=== PATIENT | female | born 1965 | race Caucasian/White ===

== ENCOUNTER 2017-04-05 22:10 | Inpatient (IN) | payer OTHER ==
[~2017-04-05] VITALS: Ht 182.9 cm; Wt 76.3 kg
[~2017-04-05 22:10] MED LIST: ABILIFY5 MG PO; ATARAX,VISTARIL50 MG PO; ATENOLOL50 MG PO; ATIVAN0.5 MG PO; BENADRYL25 MG PO; BRINTELLIX20 MG PO; CELEBREX200 MG PO; CELECOXIB200 MG PO; CELEXA20 MG PO; COUMADIN,JANTOVE5 MG PO; COUMADIN1 MG PO; COUMADIN3 MG PO; COUMADIN4 MG PO; COUMADIN5 MG PO; Coumadin Protocol PO; DESYREL 150 MG150 MG PO; ELAVIL50 MG PO; Elavil PO; Feosol PO; Hydrodiuril,Oretic,E PO; JANTOVEN4 MG PO; KEFLEX500 MG PO; LEVOTHYROXINE50 MCG PO; LIPITOR10 MG PO; LISINOPRIL40 MG PO; LOVENOX40 MG/0.4 SC; LOVENOX80 MG/0.8 SC; LUNESTA3 MG PO; METHOCARBAMOL500 MG PO; MOTRIN600 MG PO; MS CONTIN,ORAMO15 M1 PO; NAPROSYN500 MG PO; NORCO 7.5/321 TABLET PO; NYQUIL D COLD295 ML PO; OPANA ER10 MG PO; OPANA ER15 MG PO; OXYCODONE HCL5 MG PO; OXYCODONE-APAP1 EACH PO; OXYCONTIN10 MG PO; OXYCONTIN30 MG PO; OXYMORPHONE HCL5 M1 PO; OxyCONTIN PO; PERCOCET 10/1 TABLET PO; PERCOCET 5/31 TABLET PO; PRILOSEC40 MG PO; PROVENTIL,2.5 MG/0.5 AEROSOL; PROVENTIL,2.5 MG/3 M IH; Proventil,Ventolin H IH; RANITIDINE HCL150 MG PO; ROBAXIN500 MG PO; SENNA PLUS TAB1 EACH PO; SEROQUEL100 MG PO; SERTRALINE HCL100 MG PO; STOOL SOFTENER50 MG PO; SUCRALFATE1 GM PO; SYNTHROID50 MCG PO; TENORMIN50 MG PO; TOPAMAX100 MG PO; TOPAMAX25 MG PO; TRAZODONE HCL150 MG PO; TYLENOL EXTRA500 MG PO; TYLENOL REGULA325 MG PO; Tenormin PO; Tylenol Extra Streng PO; VENTOLIN HFA18 GM IH; Vitamin B-12 PO; WARFARIN SODIUM5 MG PO; WELLBUTRIN SR100 MG PO; ZESTRIL,PRINIVI20 MG PO; ZOLOFT50 M1 PO; ZOLOFT50 MG PO; Zestril,Prinivil PO; oxyCODONE PO
[2017-04-06 05:48] VITALS: BP 171/77
[2017-04-06 07:01] LABS: PROTHROMBIN TIME 10.8 SEC (10.2-12.9)
[2017-04-06 10:56] LABS: HEMATOCRIT 38.6 % (36.0-46.0); MCV 94.8 FL (83-99)
[2017-04-06 11:16] VITALS: BP 134/63
[2017-04-06 15:35] VITALS: BP 122/57
[2017-04-06 17:30] VITALS: BP 151/69
[2017-04-06 21:05] VITALS: BP 132/60
[2017-04-07 00:20] VITALS: BP 138/58
[2017-04-07 04:31] VITALS: BP 113/57
[2017-04-07 07:06] LABS: HEMATOCRIT 31.6 % (36.0-46.0); MCV 96.3 FL (83-99)
[2017-04-07 07:13] LABS: PROTHROMBIN TIME 11.4 SEC (10.2-12.9)
[2017-04-07 07:36] LABS: ANION GAP 4 MEQ/L (2-14); CHLORIDE 110 MEQ/L (99-109); GFR ESTIMATE (CALCULATED) > 59 mL/min/; GLUCOSE 101 mg/dL (70-99); POTASSIUM 3.9 MEQ/L (3.7-5.4); SAMPLE HEMOLYSIS CHECK 0; SAMPLE ICTERIC CHECK 0; SAMPLE LIPEMIA CHECK 0; SODIUM 143 MEQ/L (136-147); UREA NITROGEN (BUN) 8 mg/dL (9-23)
[2017-04-07 08:20] VITALS: BP 118/58
[2017-04-07] MEDS ORDERED: LOVENOX80 MG/0.8 SC (09:17)
[2017-04-07] MEDS ORDERED: OXYCONTIN10 MG PO (09:17)
[2017-04-07] MEDS ORDERED: SENNA PLUS TAB1 EACH PO (09:17)
[2017-04-07] MEDS ORDERED: OXYCODONE HCL5 MG PO (09:17)
[2017-04-07 12:11] VITALS: BP 159/79
[2017-04-07 15:25] VITALS: BP 132/63
[2017-04-07 19:57] VITALS: BP 148/67
[2017-04-08 00:20] VITALS: BP 106/54
[2017-04-08 04:03] VITALS: BP 99/49
[2017-04-08 06:02] LABS: HEMATOCRIT 30.8 % (36.0-46.0); MCV 94.5 FL (83-99)
[2017-04-08 06:14] LABS: INTER. NORMALIZED RATIO 1.4; PROTHROMBIN TIME 15.5 SEC (10.2-12.9)
[2017-04-08 08:01] VITALS: BP 110/56
[2017-04-08] MEDS ORDERED: COUMADIN5 MG PO (11:18)
[2017-04-08] MEDS ORDERED: LOVENOX80 MG/0.8 SC (11:18)
[2017-04-08 11:36] VITALS: BP 129/72
== END 2017-04-08 14:07 | disposition home health service (06) | DRG 470 ==
LOC: ENRESERV 22:10 → 2SOUTH 04-06 05:29 → 3WEST 04-06 11:00 → 2SOUTH 04-06 15:18 → 3WEST 04-08 14:07
PROVIDERS: Orthopaedic Surgery
PROC: 0SRB04A Replacement of Left Hip Joint with Ceramic on Polyethylene Synthetic Substitute, Uncemented, Open Approach (ICD-10-PCS; principal; 2017-04-06)
DX: M16.12 Unilateral primary osteoarthritis, left hip (principal); Q87.40 Marfan syndrome, unspecified; M85.88 Other specified disorders of bone density and structure, other site; J45.909 Unspecified asthma, uncomplicated; Z95.2 Presence of prosthetic heart valve; Z79.01 Long term (current) use of anticoagulants; E03.9 Hypothyroidism, unspecified; M79.7 Fibromyalgia; E04.1 Nontoxic single thyroid nodule; I10 Essential (primary) hypertension; Z82.49 Family history of ischemic heart disease and other diseases of the circulatory system; Z96.641 Presence of right artificial hip joint; Z96.652 Presence of left artificial knee joint
CPT/HCPCS: 73502; 80048; 85014; 85018; 85610; 94640; 99202; J0131; J0690; J1100; J1650; J2250; J2405; J3370; J7050; Q0175

== ENCOUNTER 2017-11-29 20:01 | Emergency (ER) | payer OTHER ==
[~2017-11-29] VITALS: Ht 182.9 cm; Wt 86.4 kg
[2017-11-29 20:29] LABS: HEMATOCRIT 38.6 % (36.0-46.0); HEMOGLOBIN 13.1 G/DL (11.9-15.5); MCH 31.3 PG (29.0-34.0); MCHC 33.9 G/DL (30.0-36.0); MCV 92.1 FL (83-99); PLATELET COUNT 198 K/uL (156-360); RBC DIS.WIDTH-CV 12.8 % (11.8-14.6); RBC DIS.WIDTH-SD 43.5 % (39-53); RED BLOOD COUNT 4.19 M/uL (3.80-5.20); WHITE BLOOD COUNT 7.2 K/uL (4.1-10.2)
[2017-11-29 20:44] LABS: CHLORIDE 108 mEq/L (99-109); SODIUM 139 mEq/L (136-147)
[2017-11-29 20:45] LABS: GLUCOSE 100 mg/dL (70-99)
[2017-11-29 20:47] LABS: POTASSIUM 3.3 mEq/L (3.7-5.4)
[2017-11-29 20:49] LABS: CREATININE 0.9 mg/dL (0.6-1.3); GFR ESTIMATE (CALCULATED) > 59 mL/min/
[2017-11-29 20:50] LABS: UREA NITROGEN (BUN) 15 mg/dL (9-23)
[2017-11-29 20:56] LABS: TROP-I INTERPRETATION NEGATIVE; TROPONIN-I < 0.01 ng/mL (0.0-0.30)
[2017-11-29 21:17] LABS: INTER. NORMALIZED RATIO 1.7
[2017-11-29 21:18] LABS: ALBUMIN 3.8 g/dL (3.2-4.8)
[2017-11-29 21:20] LABS: PTT 32.3 SEC (25-37)
[2017-11-29 21:21] LABS: TOTAL PROTEIN 6.4 g/dL (6.4-8.3)
[2017-11-29 21:23] LABS: TOTAL BILIRUBIN 0.4 mg/dL (0.0-1.0)
[2017-11-29 21:24] LABS: ALKALINE PHOSPHATASE 92 IU/L (3-129)
[2017-11-29 21:27] LABS: ALT (GPT) 13 IU/L (3-49); AST (GOT) 25 IU/L (2-34)
[2017-11-29 21:28] LABS: LIPASE 17 U/L (1.0-51.0)
[2017-11-29 23:33] VITALS: BP 161/85
== END 2017-11-29 23:40 | disposition home or self-care (01) ==
LOC: EME 20:01
DX: R10.13 Epigastric pain (principal); R07.9 Chest pain, unspecified; E87.6 Hypokalemia; Q87.40 Marfan syndrome, unspecified; J44.9 Chronic obstructive pulmonary disease, unspecified; K21.9 Gastro-esophageal reflux disease without esophagitis; I10 Essential (primary) hypertension; E78.5 Hyperlipidemia, unspecified; M79.7 Fibromyalgia; F41.9 Anxiety disorder, unspecified; F32.9 Major depressive disorder, single episode, unspecified; G43.909 Migraine, unspecified, not intractable, without status migrainosus; Z95.2 Presence of prosthetic heart valve; Z79.01 Long term (current) use of anticoagulants; Z87.891 Personal history of nicotine dependence; Z90.49 Acquired absence of other specified parts of digestive tract; Z88.5 Allergy status to narcotic agent; Z88.1 Allergy status to other antibiotic agents
CPT/HCPCS: 71045; 71275; 80048; 80053; 83690; 84484; 85027; 85610; 85730; 86850; 86900; 86901; 93005; 99281; 99283